=== PATIENT | male | born 1955 | race African-American/Black ===

== ENCOUNTER 2021-01-31 22:05 | Inpatient (IN) | payer OTHER ==
[~2021-01-31] VITALS: Ht 180.3 cm; Wt 93.0 kg
[~2021-01-31 22:05] MED LIST: LEVOTHYROXIN0.125 M1 PO; NORCO 5-325 TA1 EACH
[2021-01-31 22:07] VITALS: BP 158/81
[2021-01-31] MEDS ORDERED: TAMSULOSIN HCL0.4 MG PO (22:17)
[2021-01-31] MEDS ORDERED: FLUOXETINE HCL60 MG PO (22:17)
[2021-01-31] MEDS ORDERED: LOSARTAN POTASS50 MG PO (22:17)
[2021-01-31] MEDS ORDERED: BUSPIRONE HCL5 MG PO (22:19)
[2021-01-31] MEDS ORDERED: HYDROXYZINE HCL25 M2 PO (22:19)
[2021-01-31 22:51] LABS: ABSOLUTE NEUTROPHILS 15.4 thou/uL (1.4-8.2); BASOPHILS 0.3 % (0.0-2.0); EOSINOPHILS 0.1 % (0.0-3.0); HEMATOCRIT 37.8 % (42.0-52.0); HEMOGLOBIN 12.6 gm/dL (14.0-18.0); LYMPHOCYTES 2.3 % (24.0-44.0); MCH 30.9 pg (26.0-34.0); MCHC 33.4 g/dL (28.0-37.0); MCV 92.6 fL (80.0-100.0); MONOCYTES 6.8 % (1.0-8.0); PLATELET COUNT 183 thou/uL (150-400); POLYS 90.5 % (36.0-66.0); RBC 4.09 mil/uL (4.50-6.00); RDW 13.7 % (10.5-14.5)
[2021-01-31 23:04] LABS: ANION GAP 11 mmol/L (7-16); BUN 17 mg/dL (7-18); CALCIUM 8.7 mg/dL (8.5-10.1); CHLORIDE 95 mmol/L (98-107); CO2 23 mmol/L (21-32); CREATININE 1.4 mg/dL (0.7-1.3); GLUCOSE 147 mg/dL (74-106); POTASSIUM 4.2 mmol/L (3.5-5.1); SODIUM 129 mmol/L (136-145)
[2021-01-31 23:08] LABS: URINE BILIRUBIN NEGATIVE (Negative); URINE BLOOD 3+ (Negative); URINE CLARITY CLOUDY; URINE COLOR YELLOW; URINE GLUCOSE-RANDOM* NEGATIVE (Negative); URINE KETONES NEGATIVE (Negative); URINE PROTEIN (DIPSTICK) TRACE (Negative); URINE SPECIFIC GRAVITY 1.015 (1.005-1.035); URINE UROBILINOGEN 0.2 E.U./dl (0.2-1.0)
[2021-01-31 23:17] LABS: ALBUMIN 3.2 g/dL (3.4-5.0); AMYLASE 77 U/L (25-115); DIRECT BILIRUBIN 0.2 mg/dL (<0.1-0.2); LIPASE 147 U/L (73-393); MAGNESIUM 1.7 mg/dL (1.8-2.4); PHOSPHORUS 2.5 mg/dL (2.5-4.9); SGOT 23 U/L (15-37); SGPT 34 U/L (30-65); TOTAL BILIRUBIN 0.7 mg/dL (0.2-1.0); TOTAL PROTEIN 6.7 g/dL (6.4-8.2); TROPONIN-I <0.06 ng/mL (<0.06)
[2021-01-31 23:21] LABS: URINE LEUKOCYTES-REFLEX 3+ (Negative); URINE NITRITE-REFLEX POSITIVE (Negative)
[2021-01-31 23:25] LABS: BACTERIA-REFLEX >30 Many /HPF (None Seen); CASTS None Seen /LPF (None Seen); CRYSTALS None Seen /LPF (None Seen); MUCUS 0-3 Light strn/LPF (None Seen); SQUAMOUS 0-3 Few /LPF (0-3); WBC CLUMPS Few (None Seen)
[2021-02-01 01:28] VITALS: BP 134/77
[2021-02-01 01:41] VITALS: BP 134/77
[2021-02-01 02:55] VITALS: BP 120/64
--- NOTE | 2021-02-01 03:29 | NUR ---
PT ADMITTED TO THE UNIT AT 0215 WITH C/O WEAKNESS AFTER PROLONGED EXPOSURE TO THE SUN AND ALSO WITH UTI.PT IS A/O X4.PT IV ON LT AC .V/S WNL.PT HAS A JIMENEZ CATHETER IN PLACE.ADMISSION COMPLETED.WILL CONTINUE TO MONITOR
[2021-02-01 05:19] LABS: HEMATOCRIT 37.6 % (42.0-52.0); HEMOGLOBIN 12.8 gm/dL (14.0-18.0); MCH 31.4 pg (26.0-34.0); MCV 92.2 fL (80.0-100.0); RBC 4.08 mil/uL (4.50-6.00); RDW 13.4 % (10.5-14.5)
[2021-02-01 05:50] LABS: CALCIUM 8.6 mg/dL (8.5-10.1); CREATININE 1.1 mg/dL (0.7-1.3); POTASSIUM 4.1 mmol/L (3.5-5.1)
--- NOTE | 2021-02-01 07:14 | EKG ---
[address] [place] [address] ELECTROCARDIOGRAM REPORT Name: DAVID VILLATORO Room #: 456-P [facility] IN [place]..#: [id number] Admission: 02/01/21 Attend Phys: Krystal Humphrey MD Discharge: Date of : 55 Report #: [id number] [facility] ED Test Date: 2021-01-31 Test Time: 22:32:39 Pat Name: DAVID VILLATORO Department: Room: 456 Gender: M Form Tamper Operator: blu knott : 1955 Requested By: Shaun Singh Order Number: [id number] MD: Avelino Lindquist Measurements Intervals [place] Rate: 69 P: 41 ND: 155 QRS: -50 QRSD: 113 T: 3 QT: 398 QTc: 427 Interpretive Statements Sinus rhythm Incomplete RBBB and LAFB Baseline wander in lead(s) V3 Compared to ECG 11/08/2011 18:01:05 Left anterior fascicular block now present Incomplete right bundle-branch block now present Right bundle-branch block now present Sinus bradycardia no longer present Sinus arrhythmia no longer present Left ventricular hypertrophy no longer present Electronically Signed On 02-01-2021 7:14:42 CDT by Avelino Lindquist [email or web address] <ELECTRONICALLY SIGNED> By: Avelino Lindquist MD, FACC 02/01/21713 31 31 Avelino Lindquist MD, [facility] /EPI
[2021-02-01 07:34] VITALS: BP 132/67
[2021-02-01 16:23] VITALS: BP 113/56
--- NOTE | 2021-02-01 16:37 | NUR ---
ASSUMED CARE OF PATIENT AT SHIFT CHANGE. ASSESSMENT CHARTED. MEDICATIONS ADMINISTERED PER EMAR HOWEVER PATIENT REFUSED BUSPAR HE DOES NOT TAKE THIS MED AT HOME. PATIENT REQUESTED BP MED LOSARTAN TO BE RESTARTED AND PROZAC DOSAGE TO BE ADJUSTED PER HOME USAGE. PROVIDER CONTACTED AND GRANTED CHANGE. NS CONTINUES TO INFUSE ON L AC W ABX. PATIENT GETS UP SBA W NO ISSUES. PATIENT TOLERATING PO INTAKE WELL; NO NAUSEA OR VOMITING REPORTED. PATIENT APPEARS STABLE AND DENIES FURTHER NEEDS. WILL CONTINUE TO MONITOR CLOSELY
[2021-02-01 20:00] VITALS: BP 143/70
[2021-02-02 04:53] LABS: HEMATOCRIT 37.6 % (42.0-52.0); HEMOGLOBIN 12.6 gm/dL (14.0-18.0); MCHC 33.6 g/dL (28.0-37.0); MCV 92.3 fL (80.0-100.0); RBC 4.08 mil/uL (4.50-6.00); RDW 13.2 % (10.5-14.5); WBC 18.2 thou/uL (4.0-11.0)
--- NOTE | 2021-02-02 06:42 | NUR ---
Assumed pt's care beginning of this pm shift. ALert and oriented. Up with steady gait. Refused all HS meds. Voiced no longer taking buspar. Nursing to update med list as provided by pt. Pt voiced not sleeping well due to noice from other pt's room. Barrett in place for voiding. Call light within reach. Encouraged to call when needing assistance. Will continue to monitor.
[2021-02-02] MEDS ORDERED: DUTASTERIDE0.5 MG PO (07:21)
[2021-02-02 08:07] VITALS: BP 138/66
[2021-02-02] MEDS ORDERED: KEFLEX750 MG PO ×2 (11:38→16:06)
[2021-02-02 14:30] VITALS: BP 138/66
--- NOTE | 2021-02-02 15:05 | NUR ---
Received awake on bed. Due medications given as prescribed, able to swallow meds w/o difficulty. On room air. Vital signs stable. On MS, not on telemetry; no complains and signs of chest pain, crushing sensation and heaviness. Assited in ADLs. On heart healthy diet- tolerating well; no nausea, no vomiting and no abdominal pain noted. With royal in place due to retention; draining well, output measured and recorded accordingly; a/w urologist's rounds re: recommendation if to keep royal or cleared for discharge. With SL at L AC; on IV antibiotics. Up ad jose miguel; independent with ADLs. Possible discharge today- a/w physician's rounds; pt kept updated. To continue monitoring patient. Pt visited relative today- update given. Pt seen and examined by Urology PA- to remove royal prior to discharge; education for self straight cath provided to patient; cleared for discharge from standpoint. Royal removed as per protocol; IV removed; no telemetry noted. Discharge orders made; discharge instructions, follow up schedule given and instructed. Discharge forms signed. Pt fetched by relative. Brought out of the unit with his personal belongings. Patient discharged.
== END 2021-02-02 15:00 | disposition home or self-care (01) | DRG 699 ==
LOC: ER 22:05 → 4W 02-01 01:22 → EROBS 02-01 01:22 → 4W 02-01 01:42
PROVIDERS: Emergency Medicine; Hospitalist; Nurse Practitioner Family; ADMIT Hospitalist; ATTEND Hospitalist
PROC: 0T2BX0Z Change Drainage Device in Bladder, External Approach (ICD-10-PCS; principal; 2021-02-01)
DX: T83.511A Infection and inflammatory reaction due to indwelling urethral catheter, initial encounter (principal); M62.82 Rhabdomyolysis; E87.1 Hypo-osmolality and hyponatremia; E03.9 Hypothyroidism, unspecified; E78.5 Hyperlipidemia, unspecified; I10 Essential (primary) hypertension; Y83.8 Other surgical procedures as the cause of abnormal reaction of the patient, or of later complication, without mention of misadventure at the time of the procedure; Y92.89 Other specified places as the place of occurrence of the external cause; B96.20 Unspecified Escherichia coli [E. coli] as the cause of diseases classified elsewhere; F41.9 Anxiety disorder, unspecified; E86.0 Dehydration; N40.1 Benign prostatic hyperplasia with lower urinary tract symptoms; R33.8 Other retention of urine; Z20.822 Contact with and (suspected) exposure to COVID-19; Z80.0 Family history of malignant neoplasm of digestive organs; Z80.42 Family history of malignant neoplasm of prostate
CPT/HCPCS: 10040

== ENCOUNTER 2021-02-12 17:02 | Inpatient (IN) | payer OTHER ==
[~2021-02-12] VITALS: Ht 180.3 cm; Wt 93.0 kg
[~2021-02-12 17:02] MED LIST changes: +BUSPIRONE HCL5 MG PO; +DUTASTERIDE0.5 MG PO; +FLUOXETINE HCL60 MG PO; +HYDROXYZINE HCL25 M2 PO; +KEFLEX750 MG PO; +LOSARTAN POTASS50 MG PO; +TAMSULOSIN HCL0.4 MG PO
[2021-02-12 17:05] VITALS: BP 132/73
[2021-02-12 17:54] LABS: ABSOLUTE NEUTROPHILS 9.1 thou/uL (1.4-8.2); BASOPHILS 0.7 % (0.0-2.0); EOSINOPHILS 0.9 % (0.0-3.0); HEMATOCRIT 40.4 % (42.0-52.0); HEMOGLOBIN 13.7 gm/dL (14.0-18.0); MCH 31.3 pg (26.0-34.0); MCHC 33.9 g/dL (28.0-37.0); MCV 92.4 fL (80.0-100.0); MONOCYTES 1.3 % (1.0-8.0); PLATELET COUNT 240 thou/uL (150-400); POLYS 87.1 % (36.0-66.0); RBC 4.37 mil/uL (4.50-6.00); RDW 13.4 % (10.5-14.5); WBC 10.4 thou/uL (4.0-11.0)
[2021-02-12 18:05] LABS: CALCIUM 9.2 mg/dL (8.5-10.1); CREATININE 1.5 mg/dL (0.7-1.3)
[2021-02-12 18:11] LABS: ALBUMIN 3.4 g/dL (3.4-5.0); TOTAL BILIRUBIN 0.4 mg/dL (0.2-1.0); TOTAL PROTEIN 7.8 g/dL (6.4-8.2)
[2021-02-12 19:26] LABS: URINE BLOOD 3+ (Negative); URINE GLUCOSE-RANDOM* NEGATIVE (Negative); URINE KETONES TRACE (Negative); URINE PROTEIN (DIPSTICK) 3+ (Negative); URINE SPECIFIC GRAVITY 1.015 (1.005-1.035)
[2021-02-12 19:27] LABS: ICTOTEST (BILI CONFIRMATORY) Negative (Negative); URINE BILIRUBIN NEGATIVE (Negative); URINE CLARITY CLOUDY; URINE COLOR RED; URINE LEUKOCYTES-REFLEX 2+ (Negative); URINE NITRITE-REFLEX POSITIVE (Negative)
[2021-02-12 19:33] LABS: SQUAMOUS None Seen /LPF (0-3); URINE WBC-REFLEX 6-15 Few /HPF (0-5)
[2021-02-12 19:34] LABS: BACTERIA-REFLEX 1-9 Few /HPF (None Seen); CASTS None Seen /LPF (None Seen); URINE RBC >20 Many /HPF (NONE SEEN)
[2021-02-12 19:35] LABS: CRYSTALS None Seen /LPF (None Seen)
[2021-02-12] MEDS ORDERED: BUSPIRONE HCL5 MG PO (20:29)
[2021-02-12] MEDS ORDERED: LEVOTHYROXINE100 MCG PO (20:30)
[2021-02-12 20:43] VITALS: BP 153/83
[2021-02-12 20:48] VITALS: BP 156/87
[2021-02-12] MEDS ORDERED: FLUOXETINE HCL40 MG PO (22:21)
[2021-02-13 00:45] VITALS: BP 117/67
[2021-02-13 03:21] LABS: HEMATOCRIT 36.7 % (42.0-52.0); HEMOGLOBIN 12.2 gm/dL (14.0-18.0); MCH 30.8 pg (26.0-34.0); MCHC 33.3 g/dL (28.0-37.0); MCV 92.3 fL (80.0-100.0); RBC 3.98 mil/uL (4.50-6.00); RDW 13.4 % (10.5-14.5); WBC 21.9 thou/uL (4.0-11.0)
[2021-02-13 03:29] LABS: CALCIUM 8.5 mg/dL (8.5-10.1); CREATININE 1.1 mg/dL (0.7-1.3); MAGNESIUM 1.7 mg/dL (1.8-2.4); POTASSIUM 4.2 mmol/L (3.5-5.1)
--- NOTE | 2021-02-13 03:31 | NUR ---
PT ADMITTED TO ROOM 214 FROM ER, JIMENEZ CATHETER WITH DARK RED URINE OUTPUT, NO C/O PAIN, IV FLUIDS STARTED IN R AC, SCDS PLACED AND EDUCATION GIVEN, VSS, WILL CON'T TO MONITOR PER PPOC.
[2021-02-13 05:15] VITALS: BP 133/71
[2021-02-13 07:30] VITALS: BP 125/77
[2021-02-13 13:43] LABS: HEMATOCRIT 36.6 % (42.0-52.0); HEMOGLOBIN 12.1 gm/dL (14.0-18.0); MCH 30.6 pg (26.0-34.0); MCHC 33.1 g/dL (28.0-37.0); MCV 92.5 fL (80.0-100.0); RBC 3.96 mil/uL (4.50-6.00); RDW 13.4 % (10.5-14.5); WBC 20.7 thou/uL (4.0-11.0)
[2021-02-13 15:30] VITALS: BP 113/64
[2021-02-13 22:12] VITALS: BP 126/67
--- NOTE | 2021-02-14 04:38 | NUR ---
PT RESTING QUIETLY IN ROOM THRU NOC, JIMENEZ WITH CON'T COACH OPERATOR RED URINE OUT PUT, VSS, NO C/O PAIN, WILL CON'T TO MONITOR PER PPOC.
[2021-02-14 05:24] VITALS: BP 136/79
[2021-02-14 08:00] VITALS: BP 125/64
[2021-02-14 08:12] LABS: HEMATOCRIT 33.7 % (42.0-52.0); HEMOGLOBIN 11.6 gm/dL (14.0-18.0); MCH 31.7 pg (26.0-34.0); MCHC 34.4 g/dL (28.0-37.0); MCV 92.1 fL (80.0-100.0); RBC 3.66 mil/uL (4.50-6.00); RDW 13.4 % (10.5-14.5); WBC 16.2 thou/uL (4.0-11.0)
[2021-02-14 08:25] LABS: CALCIUM 8.5 mg/dL (8.5-10.1); CREATININE 1.2 mg/dL (0.7-1.3); MAGNESIUM 1.8 mg/dL (1.8-2.4); POTASSIUM 3.8 mmol/L (3.5-5.1)
[2021-02-14 14:05] VITALS: BP 129/76
[2021-02-14 16:00] VITALS: BP 129/76
--- NOTE | 2021-02-14 18:12 | NUR ---
ASSESSMENT CHARTED- MEDS PER OCT - GIVEN ZOFRAN FOR NAUSEA X 2 DOSES WITH GOO RELIEF - URINE DARKER THIS AFTERNOON THAN IT WAS THIS AM - UROLOGY PA IN TO SEE PATIENT AND JIMENEZ CATH CHANGED TO LARGER SIZE AND TO BE IRRIGATED Q 3 HOURS - URINE NOW BACK TO BEING BLOOD TINGED RATHER THAN RED. ALEA DIET AND FLUIDS. AMBULATED IN THE CORDERO. NO CO'S OF PAIN. AT THE BEDSIDE. NO CO'S AT THE PRESENT TIME.
[2021-02-14 20:10] VITALS: BP 152/71
[2021-02-15 03:05] LABS: HEMATOCRIT 35.7 % (42.0-52.0); HEMOGLOBIN 11.9 gm/dL (14.0-18.0); MCH 30.9 pg (26.0-34.0); MCHC 33.5 g/dL (28.0-37.0); MCV 92.2 fL (80.0-100.0); RBC 3.87 mil/uL (4.50-6.00)
[2021-02-15 03:55] LABS: CALCIUM 8.4 mg/dL (8.5-10.1); CREATININE 1.2 mg/dL (0.7-1.3); MAGNESIUM 1.8 mg/dL (1.8-2.4); POTASSIUM 3.8 mmol/L (3.5-5.1)
[2021-02-15 04:45] VITALS: BP 144/72
[2021-02-15 08:00] VITALS: BP 141/75
[2021-02-15] MEDS ORDERED: BACTRIM DS TAB1 EAC1 PO (08:06)
[2021-02-15 11:55] VITALS: BP 141/75
--- NOTE | 2021-02-15 12:59 | NUR ---
ASSESSMENT CHARTED - MEDS PER OCT - NO CO'S OF PAIN OR NASUEA. ALEA DIET AND FLUIDS. UP AD DAVID IN ROOM. PT HOME THIS AFTERNOON. INSTRUCTION RE HOME MEDS / CARE AND FOLLOW UP GIVEN TO APTIENT - INSTRUCTION RE JIMENEZ LEG BAG AND LARGE BAG GIVEN - HOW TO CHANGE AND EMPTY - AND PT STATED THEY UNDERSTOOD INSTRUCTION. PT LEFT UNIT VIA WHEELCHAIR - HOME DOMENICA PVT VEHICLE ACCOMAPNIED BY . NO CO'S AT TIME OF D/C.
== END 2021-02-15 13:01 | disposition home or self-care (01) | DRG 871 ==
LOC: ER 17:02 → 2N 20:26 → EROBS 20:26 → 2N 20:56
PROVIDERS: Emergency Medicine; Nurse Practitioner Family; ADMIT Internal Medicine; ATTEND Internal Medicine
DX: A41.9 Sepsis, unspecified organism (principal); N17.0 Acute kidney failure with tubular necrosis; N39.0 Urinary tract infection, site not specified; E03.9 Hypothyroidism, unspecified; E78.5 Hyperlipidemia, unspecified; I10 Essential (primary) hypertension; F41.9 Anxiety disorder, unspecified; R33.8 Other retention of urine; N40.1 Benign prostatic hyperplasia with lower urinary tract symptoms; E05.00 Thyrotoxicosis with diffuse goiter without thyrotoxic crisis or storm; R31.0 Gross hematuria; B96.20 Unspecified Escherichia coli [E. coli] as the cause of diseases classified elsewhere; N32.3 Diverticulum of bladder; Z90.49 Acquired absence of other specified parts of digestive tract; Z82.49 Family history of ischemic heart disease and other diseases of the circulatory system; Z80.42 Family history of malignant neoplasm of prostate; Z80.0 Family history of malignant neoplasm of digestive organs
CPT/HCPCS: 10081